=== PATIENT | male | born 1950 | race Caucasian/White ===

== ENCOUNTER 2022-11-27 09:11 | Emergency (ER) | payer OTHER ==
[~2022-11-27] VITALS: Ht 177.8 cm; Wt 72.6 kg
[2022-11-27 10:02] LABS: BASOPHILS % (AUTO) 0.7 % (0.0-5.0); EOSINOPHILS % (AUTO) 4.1 % (0.0-8.0); LYMPHOCYTES % (AUTO) 21.4 % (21.0-51.0); MEAN CORPUSCULAR HEMOGLOBIN 32.2 pg (27.0-33.0); MEAN CORPUSCULAR HGB CONC 35.1 g/dL (32.0-36.0); MEAN CORPUSCULAR VOLUME 91.8 fL (79-99); MONOCYTES % (AUTO) 6.6 % (3.0-13.0); NEUTROPHILS % (AUTO) 66.9 % (40.0-77.0); PLATELET COUNT (AUTO) 242 K/uL (130-400); RED BLOOD CELL COUNT(AUTO) 4.25 MIL/uL (4.50-6.20); RED CELL DISTRIBUTION WIDTH 13.1 % (11.0-15.5); WHITE BLOOD COUNT (AUTO) 10.2 K/uL (4.8-10.8)
[2022-11-27 10:10] LABS: CREATININE 1.1 mg/dL (0.5-1.5); POTASSIUM 4.5 mmol/L (3.5-5.1)
[2022-11-27 10:15] LABS: ALBUMIN 3.8 g/dL (3.5-5.0); TOTAL PROTEIN, SERUM 7.9 g/dL (6.0-8.3)
[2022-11-27 13:17] VITALS: BP 117/71
== END 2022-11-27 13:18 | disposition home or self-care (01) ==
LOC: EDH 09:11
DX: R07.81 Pleurodynia (principal); I10 Essential (primary) hypertension; Z88.1 Allergy status to other antibiotic agents
CPT/HCPCS: 36415; 71100; 72040; 72070; 80053; 83605; 84484; 85025; 93005

== ENCOUNTER 2022-12-25 10:05 | Emergency (ER) | payer OTHER ==
[~2022-12-25] VITALS: Ht 175.3 cm; Wt 72.6 kg
[2022-12-25] MEDS ORDERED: BACI30OI6 TP (11:19)
[2022-12-25] MEDS ORDERED: BACITRACIN 1 EACH PACKET TP ONE (11:30)
[2022-12-25] MEDS ORDERED: TETANUS/DIPHTHERIA TOXOID [ADULT] 0.5 ML VIAL IM ONE (11:30)
[2022-12-25] MEDS ORDERED: CEFAZOLIN SODIUM 2 GM VIAL IJ SCH (11:30)
[2022-12-25] MEDS ORDERED: LIDOCAINE HCL 1% 20 ML VIAL INJ SCH (12:00)
[2022-12-25 12:45] VITALS: BP 112/60
== END 2022-12-25 12:50 | disposition home or self-care (01) ==
LOC: EDH 10:05
DX: S61.212A Laceration without foreign body of right middle finger without damage to nail, initial encounter (principal); I10 Essential (primary) hypertension; Z88.1 Allergy status to other antibiotic agents; X50.9XXA Other and unspecified overexertion or strenuous movements or postures, initial encounter; Y93.89 Activity, other specified; Y92.89 Other specified places as the place of occurrence of the external cause; Y99.8 Other external cause status
CPT/HCPCS: 99284; 90714; 73140; 90471; 29130; 96372; J0690; 96361